=== PATIENT | female | born 1955 | race Two or more races ===

== ENCOUNTER 2018-06-25 17:42 | Inpatient (IN) | payer MEDICAID ==
[~2018-06-25] VITALS: Ht 144.8 cm; Wt 64.9 kg
--- NOTE | 2018-06-25 17:53 | NUR ---
BIB SELF FOR C/O MID ABDOMINAL PAIN THAT STARTED 9AM TODAY, NAUSEA AND VOMITING. TO ER BED 9, HOOKED TO MONITOR, CHANGED TO GOWN, PROVIDED W WARM BLANKET, AWAITING MD MATHIAS.
--- NOTE | 2018-06-25 17:55 | NUR ---
DR DOBBS AT BEDSIDE
--- NOTE | 2018-06-25 17:58 | NUR ---
IV ACCESS OBTAINED ON L AC 20G
[2018-06-25] MEDS ORDERED: IV NS 0.9% 1,000 ML BAG IV ONE (18:00)
[2018-06-25] MEDS ORDERED: HYDROMORPHONE INJ 2 MG/ML DISP.SYRIN IV ONE (18:00)
[2018-06-25] MEDS ORDERED: ONDANSETRON HCL/PF 4 MG/2 ML VIAL IVP ONE (18:00)
[2018-06-25] MEDS ORDERED: ONDANSETRON HCL/PF 4 MG/2 ML VIAL ONE (18:02)
[2018-06-25] MEDS ORDERED: HYDROMORPHONE 1 MG/1 ML DISP.SYRIN ONE ×2 (18:03→19:25)
[2018-06-25 18:05] LABS: BASOPHILS % (AUTO) 0.5 % (0.0-2.0); EOSINOPHILS % (AUTO) 1.1 % (0.0-6.0); HEMATOCRIT 40 % (33-45); HEMOGLOBIN 13.7 g/dL (11.5-14.8); LYMPHOCYTES # (AUTO) 1.3 /CMM (0.8-4.8); LYMPHOCYTES % (AUTO) 14.6 % (20.0-44.0); MEAN CORPUSCULAR HGB CONC 34 g/dl (31.0-36.0); MEAN CORPUSCULAR VOLUME 91 fL (82-100); MONOCYTES # (AUTO) 0.5 /CMM (0.1-1.30); MONOCYTES % (AUTO) 5.8 % (2.0-12.0); NEUTROPHILS # (AUTO) 7.2 /CMM (1.8-8.9); PLATELET COUNT (AUTO) 219 /CMM (150-450); RED BLOOD CELL COUNT(AUTO) 4.41 MIL/uL (4.0-5.2); WHITE BLOOD COUNT (AUTO) 9.2 K/uL (4.3-11.0)
[2018-06-25] MEDS ORDERED: LATA2.5D7 EACHEYE (18:10)
[2018-06-25] MEDS ORDERED: TIMO5SOL11 EACHEYE (18:10)
[2018-06-25] MEDS ORDERED: RISE35TA PO (18:10)
[2018-06-25] MEDS ORDERED: CELE100C98 PO (18:10)
[2018-06-25] MEDS ORDERED: ACET1TAB23 PO (18:10)
[2018-06-25] MEDS ORDERED: FLUO-120 PO (18:10)
[2018-06-25] MEDS ORDERED: FAMO20TA8 PO (18:10)
--- NOTE | 2018-06-25 18:12 | NUR ---
WHEELED OUT VIA [facility] FOR CT SCAN.
[2018-06-25 18:16] LABS: CALCIUM, SERUM 8.9 mg/dL (8.5-10.1); CREATININE 0.7 mg/dL (0.6-1.3); POTASSIUM 2.9 mmol/L (3.5-5.1)
[2018-06-25 18:21] LABS: ALBUMIN 4.1 g/dL (3.4-5.0); BILIRUBIN,DIRECT 0.1 mg/dL (0.0-0.2); BILIRUBIN,TOTAL 0.3 mg/dL (0.2-1.0)
[2018-06-25] MEDS ORDERED: POTASSIUM CL. PREMIX PERIPHER. 100 ML ONE (18:37)
--- NOTE | 2018-06-25 18:40 | NUR ---
1ST BAG OF POTASSIUM CHLORIDE 10MEQ/50ML HUNG AT BEDSIDE, SET TO 50ML/HR.
[2018-06-25] MEDS: POTASSIUM CL. PREMIX PERIPHER. 50 ML IV SCH ×3 (18:45→22:39)
--- NOTE | 2018-06-25 19:10 | NUR ---
PT TOLERATING POTASSIUM CHLORIDE 10MEQ/50ML WELL. HOOKED TO MONITOR, VSS, KEPT SAFE, WARM AND COMFORTABLE.
--- NOTE | 2018-06-25 19:20 | NUR ---
PT COMPLAINED OF LAC (PERIPHERAL IV SITE) PAIN. MADE MD AWARE, VERBAL ORDER OF 1L NS RECEIVED TO RUN AT 100ML/HR TOGETHER WITH POTASSIUM CHLORIDE IV.
--- NOTE | 2018-06-25 19:25 | NUR ---
REPORT GIVEN TO JEAN ASCENCIO FOR IVAN
[2018-06-25] MEDS ORDERED: IV NS 0.9% 1,000 ML IV ONE (19:30)
[2018-06-25] MEDS ORDERED: HYDROMORPHONE 1 MG/1 ML DISP.SYRIN IV ONE (19:30)
--- NOTE | 2018-06-25 19:30 | NUR ---
CALLED DR LEON SURGERY MANAGEMENT TRAINEE PROGRAM STORES. ON THE PHONE WITH DR DOBBS.
--- NOTE | 2018-06-25 19:32 | NUR ---
CALLED [employer] VALUATION CONSULTANT WAS PAGED.
--- NOTE | 2018-06-25 19:33 | NUR ---
CALLED NURSING PULVERIZER FEEDER REQUESTING A MS BED.
--- NOTE | 2018-06-25 19:34 | NUR ---
RECEIVED REPORT FROM JEREMIAS ASCENCIO FOR IVAN
--- NOTE | 2018-06-25 20:40 | NUR ---
GAVE REPORT TO ANA ASCENCIO FOR IVAN
--- NOTE | 2018-06-25 20:45 | NUR ---
PT TRANSFERRED TO MS BED 308 VIA GURNEY WITH EMT
--- NOTE | 2018-06-25 20:50 | NUR ---
RN NOTES RECEIVED PATIENT FROM ER VIA CHRISTOPHER. FAMILY AT BEDSIDE. A/O X4. NO S/S OF SOB OR DISTRESS. BREATHING EVEN AND UNLABORED. HAS IV ACCESS IN LAC, PATENT AND INTACT WITH POTASSIUM AND NS FLUIDS RUNNING, NO SIGNS OF REDNESS OR INFILTRATION. PATIENT STATES PAIN 9/10 IN LOWER ABDOMEN. ORIENTED PATIENT TO UNIT AND ROOM. SKIN INTACT. BED IN LOWER LOCKED POSITION WITH SIDE RAILS X2. CALL LIGHT WITHIN REACH. WILL CONTINUE TO MONITOR.
[2018-06-25 21:00] VITALS: BP 119/71
[2018-06-25] MEDS ORDERED: Potassium Chloride 20 MEQ in IV D5/ 0.9% NACL 1,000 ML IV PRN (23:30)
[2018-06-26] MEDS ORDERED: PIPERACILLIN /TAZOBACTAM 3.375 G in IV D5W 50 ML IV SCH ×2
[2018-06-26] MEDS ORDERED: PIPERACILLIN /TAZOBACTAM 3.375 G VIAL IV ONE ×2 (00:18→05:33)
[2018-06-26] MEDS: PIPERACILLIN /TAZOBACTAM 3.375 G in IV D5W 50 ML IV SCH ×2 (00:21→05:55)
[2018-06-26] MEDS: ONDANSETRON HCL/PF 4 MG/2 ML VIAL IVP PRN ×2 (00:29→12:28)
[2018-06-26] MEDS: HYDROMORPHONE INJ 2 MG/ML DISP.SYRIN IV PRN ×2 (00:30→19:03)
[2018-06-26] MEDS: POTASSIUM CL. PREMIX PERIPHER. 50 ML IV SCH (01:23)
[2018-06-26] MEDS ORDERED: IV PREMIX D5 1/2NS + KCL 1,000 ML IV ONE (01:31)
[2018-06-26] MEDS: Potassium Chloride 20 MEQ in IV D5/0.45 NACL 1,000 ML IV PRN ×2 (02:32→17:52)
--- NOTE | 2018-06-26 06:34 | NUR ---
RN CLOSING NOTES PATIENT RESTING COMFORTABLY IN BED. A/O X4. NO SIGNS OF DISTRESS OR DISCOMFORT. BREATHING EVEN AND UNLABORED. IV ACCESS IN LAC WITH KCL 20 W/D5 1/2NS INFUSING, NO SIGNS OF REDNESS OR INFILTRATION. PATIENT STATES ABD PAIN TOLERABLE AT 4/10. ALL NEEDS MET. BED IN LOW LOCKED POSITION WITH SIDE RAILS X2. CALL LIGHT WITHIN REACH. WILL ENDORSE TO AM SHIFT FOR IVAN.
--- NOTE | 2018-06-26 07:20 | NUR ---
MS RN NOTES PATIENT RECEIVED RESTING INSIDE ROOM. AWAKE, ALERT AND ORIENTED,. VERBALLY RESPONSIVE AND RESPONDS TO VERBAL AND TACTILE STIMULI. BREATHING EVEN AND UNLABORED. NO ACUTE DISTRESS AT THIS TIME. PATIENT CALM AND RELAXED. NPO STATUS AT THIS TIME. PATIENT AWARE AND VERBALIZED UNDERSTANDING. WILL CONTINUE TO MONITOR. BED LOCKED AND IN LOW POSITION. BILATERAL UPPER SIDE RAILS UP AND LOCKED. CALL LIGHT WITHIN EASY REACH
[2018-06-26 07:58] LABS: BASOPHILS % (AUTO) 0.4 % (0.0-2.0); EOSINOPHILS % (AUTO) 0.6 % (0.0-6.0); HEMATOCRIT 33 % (33-45); HEMOGLOBIN 11.3 g/dL (11.5-14.8); LYMPHOCYTES # (AUTO) 1.5 /CMM (0.8-4.8); MEAN CORPUSCULAR HGB CONC 34 g/dl (31.0-36.0); MEAN CORPUSCULAR VOLUME 92 fL (82-100); MONOCYTES # (AUTO) 0.6 /CMM (0.1-1.30); MONOCYTES % (AUTO) 8.1 % (2.0-12.0); NEUTROPHILS # (AUTO) 5.5 /CMM (1.8-8.9); NEUTROPHILS % (AUTO) 71.9 % (43.0-81.0); PLATELET COUNT (AUTO) 177 /CMM (150-450); RED BLOOD CELL COUNT(AUTO) 3.58 MIL/uL (4.0-5.2); WHITE BLOOD COUNT (AUTO) 7.7 K/uL (4.3-11.0)
[2018-06-26 08:00] VITALS: BP 76/45
[2018-06-26 08:19] LABS: ALBUMIN 2.9 g/dL (3.4-5.0); BILIRUBIN,TOTAL 0.6 mg/dL (0.2-1.0); CALCIUM, SERUM 7.4 mg/dL (8.5-10.1); CREATININE 0.5 mg/dL (0.6-1.3); PHOSPHORUS 3.4 mg/dL (2.5-4.9); POTASSIUM 3.5 mmol/L (3.5-5.1); TOTAL PROTEIN, SERUM 6.1 g/dL (6.4-8.2)
[2018-06-26] MEDS ORDERED: TIMOLOL -XE 0.5% 5 ML BOTTLE EACHEYE SCH (09:00)
[2018-06-26] MEDS: PANTOPRAZOLE 40 MG VIAL IV SCH (09:49)
--- NOTE | 2018-06-26 10:57 | NUR ---
MS RN NOTES VERIFIED ORDER FOR TIMOLOL XE 0.5% WITH DR SCHULTZ. GAVE OK TO CHANGE TO TIMOLOL 0.5%. ORDER NOTED AND CARRIED OUT. PHARMACY MADE AWARE. PATIENT MADE AWARE AND VERBALIZED UNDERSTANDING
[2018-06-26 11:30] VITALS: BP 97/44
[2018-06-26] MEDS ORDERED: LORAZEPAM INJ 2 MG/ML VIAL IV PRN (11:30)
[2018-06-26] MEDS: PIPERACILLIN /TAZOBACTAM 3.375 G in IV D5W 100 ML IV SCH ×2 (12:22→21:26)
[2018-06-26] MEDS: TIMOLOL 0.5% SOLN OPHTH 5 ML BOTTLE EACHEYE SCH (12:22)
--- NOTE | 2018-06-26 13:06 | NUR ---
MS RN NOTES SEEN AND EXAMINED BY DR. LEON. GAVE OK TO START CLEAR LIQUID DIET. PATIENT MADE AWARE AND VERBALIZED UNDERSTANDING. FNS MADE AWARE. WILL CONTINUE TO MONITOR
[2018-06-26] MEDS ORDERED: CALC-20 PO (15:55)
[2018-06-26] MEDS ORDERED: TIMO5DRO18 EACHEYE (15:57)
[2018-06-26 16:00] VITALS: BP 89/56
[2018-06-26] MEDS: LATANOPROST EYE DROP 0.005% 2.5 ML BOTTLE EACHEYE SCH (17:53)
--- NOTE | 2018-06-26 18:48 | NUR ---
MS RN NOTES PATIENT RESTING INSIDE ROOM. AWAKE, ALERT AND ORIENTED X 4, VERBALLY RESPONSIVE AND RESPONDS TO VERBAL AND TACTILE STIMULI. BREATHING EVEN AND UNLABORED. NO ACUTE DISTRESS NOTED. PATIENT CALM AND RELAXED. IV INTACT AND PATENT. PATIENT KEPT CLEAN, DRY AND COMFORTABLE. WILL ENDORSE TO INCOMING SHIFT FOR IVAN. BED LOCKED AND IN LOW POSITION. BILATERAL UPPER SIDE RAILS UP AND LOCKED. CALL LIGHT WITHIN EASY REACH
--- NOTE | 2018-06-26 19:30 | NUR ---
MS SUPERVISOR FILES INITIAL NOTES RECEIVED REPORT FROM AM NURSE AND SEEN PT IN BED AWAKE AND ALERT WITH IVF [id number] KCL AT 100ML/HR INFUSING AT THIS TIME ON HER LEFT AC PATENT AND INTACT. NO SIGNS OF ANY DISTRESS NOTED AND SHE STATED THAT SHE FEEL DIZZY AT THIS TIME I TOLD HER THAT BECAUSE OF HER PAIN MEDICATION . PT STATES "AH OK ". KEPT HER ON SITTING POSITION FOR NOW AND KEPT HER WARM AND COMFORTABLE AT ALL TIMES. PLACE CALL LIGHT AT REACH. WILL [id number] MONITORING.
[2018-06-26 20:00] VITALS: BP 102/57
[2018-06-27] MEDS: ONDANSETRON HCL/PF 4 MG/2 ML VIAL IVP PRN ×2 (00:48→22:22)
--- NOTE | 2018-06-27 00:48 | NUR ---
MS SONJA NOTES C/O NAUSEA, ZOFRAN ADMINISTERED ORDERED. KEPT HER ON SEMI FOWLERS POSITION . IVF STILL INFUSING. KEPT HER WARM AND COMFORTABLE AT ALL TIMES. PLACE CALL LIGHT AT REACH.
[2018-06-27 00:49] LABS: APPEARANCE,URINE CLEAR (CLEAR); BILIRUBIN,URINE NEGATIVE (NEGATIVE); BLOOD, URINE TRACE Ery/uL (NEGATIVE); COLOR,URINE YELLOW (YELLOW); KETONES,URINE NEGATIVE (NEGATIVE); LEUKOCYTE ESTERASE ,URINE TRACE (NEGATIVE); NITRITE, URINE NEGATIVE (NEGATIVE); PROTEIN,URINE NEGATIVE (NEGATIVE); UGLUCOSE NEGATIVE (NEGATIVE)
[2018-06-27 01:02] LABS: BACTERIA,URINE None seen /HPF (None Seen); RBC,URINE 0-2 /HPF (0-2); SQUAMOUS EPITHELIAL CELL,UR Few /HPF (None Seen); WBC,URINE 0-2 /HPF (0-3)
[2018-06-27] MEDS: PIPERACILLIN /TAZOBACTAM 3.375 G in IV D5W 100 ML IV SCH ×3 (05:20→21:01)
[2018-06-27] MEDS: Potassium Chloride 20 MEQ in IV D5/0.45 NACL 1,000 ML IV PRN ×2 (05:28→22:22)
[2018-06-27 06:27] LABS: BASOPHILS % (AUTO) 0.7 % (0.0-2.0); EOSINOPHILS % (AUTO) 3.7 % (0.0-6.0); HEMATOCRIT 35 % (33-45); HEMOGLOBIN 11.9 g/dL (11.5-14.8); LYMPHOCYTES # (AUTO) 1.6 /CMM (0.8-4.8); LYMPHOCYTES % (AUTO) 37.3 % (20.0-44.0); MEAN CORPUSCULAR HGB CONC 34 g/dl (31.0-36.0); MEAN CORPUSCULAR VOLUME 93 fL (82-100); MONOCYTES # (AUTO) 0.4 /CMM (0.1-1.30); MONOCYTES % (AUTO) 9.3 % (2.0-12.0); NEUTROPHILS # (AUTO) 2.1 /CMM (1.8-8.9); PLATELET COUNT (AUTO) 175 /CMM (150-450); RED BLOOD CELL COUNT(AUTO) 3.78 MIL/uL (4.0-5.2); WHITE BLOOD COUNT (AUTO) 4.3 K/uL (4.3-11.0)
[2018-06-27 06:40] LABS: CALCIUM, SERUM 7.6 mg/dL (8.5-10.1); CREATININE 0.4 mg/dL (0.6-1.3); MAGNESIUM 2.1 mg/dL (1.8-2.4); PHOSPHORUS 2.7 mg/dL (2.5-4.9)
--- NOTE | 2018-06-27 07:08 | NUR ---
MS SERVICENOW ADMINISTRATOR DEVELOPER CLOSING NOTES PT BACK TO BED AFTER MORNING CARE DONE WITH THE HELPED OF MARY GRACE BARKLEY . PT SLEPT WELL . NO SIGNS OF ANY ACUTE DISTRESS OR ANY DISCOMFORT AT THIS TIME. ALL DUE MEDS GIVEN AND ALL NEEDS MET. KEPT HER WARM AND COMFORTABLE AT ALL TIMES. ZOSYN IVP BAG STILL INFUSING NO ADVERSE REACTION NOTED. PLACE CALL LIGHT AT REACH,ENDORSE TO AM NURSE FOR CONTINUITY OF CARE.
--- NOTE | 2018-06-27 07:36 | NUR ---
MS RN NOTES PATIENT RECEIVED RESTING INSIDE ROOM. AWAKE, ALERT AND ORIENTED, VERBALLY RESPONSIVE AND RESPONDS TO VERBAL AND TACTILE STIMULI. BREATHING EVEN AND UNLABORED. NO ACUTE DISTRESS AT THIS TIME. NO CHANGES IN LOC NOTED. IVF INFUSING, PATIENT TOLERATING WELL. WILL CONTINUE TO MONITOR. BED LOCKED AND IN LOW POSITION. BILATERAL UPPER SIDE RAILS UP AND LOCKED. CALL LIGHT WITHIN EASY REACH
[2018-06-27 08:00] VITALS: BP 95/67
[2018-06-27] MEDS: PANTOPRAZOLE 40 MG VIAL IV SCH (08:34)
[2018-06-27] MEDS: TIMOLOL 0.5% SOLN OPHTH 5 ML BOTTLE EACHEYE SCH (08:34)
--- NOTE | 2018-06-27 15:10 | NUR ---
MS RN NOTES PATIENT SEEN AND EXAMINED BY DR. SCHULTZ. WITH NEW ORDER FOR STAT HIDA SCAN. INFORMED CONSENT OBTAINED BY MD FROM PATIENT AND WITNESSED BY NURSING STAFF. PATIENT LAST PO INTAKE OF FLUIDS AT 1400. NUCLEAR MEDICINE AWARE.
[2018-06-27 16:00] VITALS: BP 99/61
--- NOTE | 2018-06-27 16:00 | NUR ---
MS RN NOTES VERIFIED ORDER FOR HIDA SCAN. PATIENT WITH HX OF CHOLECYSTECTOMY. HIDA SCAN CANCELLED WITH OK FROM MD. PATIENT AWARE AND VERBALIZED UNDERSTANDING. WILL CONTINUE TO MONITOR
[2018-06-27] MEDS: LATANOPROST EYE DROP 0.005% 2.5 ML BOTTLE EACHEYE SCH (18:15)
--- NOTE | 2018-06-27 18:56 | NUR ---
MS RN NOTES PATIENT RESTING INSIDE ROOM. AWAKE, ALERT AND ORIENTED X 4, VERBALLY RESPONSIVE AND RESPONDS TO VERBAL AND TACTILE STIMULI. BREATHING EVEN AND UNLABORED. NO ACUTE DISTRESS AT THIS TIME. PATIENT KEPT CLEAN, DRY AND COMFORTABLE. WILL ENDORSE TO INCOMING SHIFT FOR IVAN. BED LOCKED AND IN LOW POSITION. BILATERAL UPPER SIDE RAILS UP AND LOCKED. CALL LIGHT WITHIN EASY REACH
[2018-06-27 19:56] VITALS: BP 104/66
[2018-06-27] MEDS: HYDROMORPHONE INJ 2 MG/ML DISP.SYRIN IV PRN (21:08)
[2018-06-28] MEDS: PIPERACILLIN /TAZOBACTAM 3.375 G in IV D5W 100 ML IV SCH ×3 (04:25→20:49)
--- NOTE | 2018-06-28 06:50 | NUR ---
MS RN NOTES AWAKE & RESPONSIVE. NOT IN ANY DISTRESS. NO SOB NOTED. DENIES ANY PAIN OR DISCOMFORT AT THIS TIME. WITH IVF INFUSING WELL. MONITORED ACCORDINGLY. CALL LIGHT WITHIN REACH. BED IN LOWEST POSITION. SR UP X 2 FOR SAFETY. WILL ENDORSE TO NEXT SHIFT.
--- NOTE | 2018-06-28 07:34 | NUR ---
MS RN OPENING NOTES RECEIVED PATIENT AWAKE IN BED IN NO ACUTE SIGNS OF DISTRESS. A/O X 4. ABLE TO MAKE NEEDS KNOWN, DENIES PAIN OR DISCOMFORTS AT THIS TIME. ON ROOM AIR, RESPIRATION EVEN AND UNLABORED. IV ACCESS ON LAC INTACT AND PATENT, IVF OF D5 1/2 NS + KCL 20MEQ INFUSING ORDERED, NO S/S OF INFILTRATIONS NOTED. ALL SAFETY MEASURES IN PLACE. BED IN LOW LOCKED POSITION WITH SR UP X2. CALL LIGHT WITHIN REACH. WILL CONTINUE TO MONITOR PT.
[2018-06-28] MEDS: PANTOPRAZOLE 40 MG VIAL IV SCH (07:54)
[2018-06-28 08:00] VITALS: BP 102/66
[2018-06-28 08:13] LABS: BASOPHILS % (AUTO) 0.7 % (0.0-2.0); EOSINOPHILS % (AUTO) 3.9 % (0.0-6.0); HEMATOCRIT 36 % (33-45); HEMOGLOBIN 12.2 g/dL (11.5-14.8); LYMPHOCYTES # (AUTO) 1.3 /CMM (0.8-4.8); LYMPHOCYTES % (AUTO) 30.9 % (20.0-44.0); MEAN CORPUSCULAR HGB CONC 34 g/dl (31.0-36.0); MEAN CORPUSCULAR VOLUME 92 fL (82-100); MONOCYTES # (AUTO) 0.4 /CMM (0.1-1.30); MONOCYTES % (AUTO) 8.4 % (2.0-12.0); NEUTROPHILS # (AUTO) 2.4 /CMM (1.8-8.9); NEUTROPHILS % (AUTO) 56.1 % (43.0-81.0); PLATELET COUNT (AUTO) 180 /CMM (150-450); WHITE BLOOD COUNT (AUTO) 4.3 K/uL (4.3-11.0)
[2018-06-28 08:23] LABS: CALCIUM, SERUM 8.4 mg/dL (8.5-10.1); CREATININE 0.6 mg/dL (0.6-1.3); MAGNESIUM 2.2 mg/dL (1.8-2.4); PHOSPHORUS 3.4 mg/dL (2.5-4.9); POTASSIUM 3.7 mmol/L (3.5-5.1)
[2018-06-28] MEDS: TIMOLOL 0.5% SOLN OPHTH 5 ML BOTTLE EACHEYE SCH (09:10)
[2018-06-28] MEDS: HYDROMORPHONE INJ 2 MG/ML DISP.SYRIN IV PRN (10:08)
--- NOTE | 2018-06-28 10:12 | NUR ---
RN NOTES/ PAIN MANAGEMENT PATIENT COMPLAINED OF LEFT LOWER QUADRANT PAIN WITH SCALE OF 6/10. PRN DILAUDID 1MG/0.5ML IVP ADMINISTERED AT 1008. WILL CONTINUE TO MONITOR AND REASSESS PT.
[2018-06-28] MEDS: Potassium Chloride 20 MEQ in IV D5/0.45 NACL 1,000 ML IV PRN ×2 (10:35→22:14)
--- NOTE | 2018-06-28 13:44 | NUR ---
MS RN ASSUMPTION OF CARE ASSUMED CARE OF PT FROM SILVA GALLARDO. RECEIVED PT IN BED, ALERT AND ORIENTED, X4. DENIES CHEST PAIN, SOB, N/V. BREATHING IS EVEN AND UNLABORED ON ROOM AIR. LEFT AC #20G IV IS INFUSING ORDERED WITHOUT REDNESS OR SWELLING. ALL NEEDS ATTENDED TO. BED IS LOCKED AND IN LOWEST POSITION, SIDE RAILS UP X2, BED ALARM ON, CALL LIGHT AND POSSESSIONS WITHIN REACH.
[2018-06-28] MEDS: ONDANSETRON HCL/PF 4 MG/2 ML VIAL IVP PRN (15:08)
[2018-06-28] MEDS: HYDROCODONE/APAP 5/325MG 1 EACH TABLET PO PRN (15:08)
[2018-06-28 16:00] VITALS: BP 98/58
[2018-06-28] MEDS: LATANOPROST EYE DROP 0.005% 2.5 ML BOTTLE EACHEYE SCH (17:10)
--- NOTE | 2018-06-28 18:04 | NUR ---
MS RN CLOSING NOTE PT IN BED, ALERT AND ORIENTED, X4. DENIES CHEST PAIN, SOB, N/V. BREATHING IS EVEN AND UNLABORED ON ROOM AIR. LEFT AC #20G IV IS INFUSING ORDERED WITHOUT REDNESS OR SWELLING. ADLS PROVIDED AND PT ASSISTED TO TURN AND REPOSITION Q2H. PT NOT TOLERATED CLEAR LIQUID DIET WITH SOME NAUSEA AND ABD PAIN BUT NO EPISODES OF EMESIS. ALL NEEDS ATTENDED TO. BED IS LOCKED AND IN LOWEST POSITION, SIDE RAILS UP X2, BED ALARM ON, CALL LIGHT AND POSSESSIONS WITHIN REACH. WILL ENDORSE TO BUTTER GRADER NURSE FOR CONTINUITY OF CARE.
--- NOTE | 2018-06-28 19:15 | NUR ---
RN OPEN NOTES RECEIVED PATIENT AWAKE IN BED WITH FAMILY AT BEDSIDE. A/O X4. NO SIGNS OF DISTRESS OR DISCOMFORT. BREATHING EVEN AND UNLABORED. STATES PAIN TOLERABLE AT THIS TIME. IV ACCESS IN LAC WITH NS KCL 20MEQ W/D5 1/2 NS INFUSING, PATENT AND INTACT, NO SIGNS OF REDNESS OR INFILTRATION. BED IN LOW LOCKED POSITION WITH SIDE RAILS X2. CALL LIGHT WITHIN REACH. WILL CONTINUE TO MONITOR.
[2018-06-28 20:00] VITALS: BP 97/57
[2018-06-28] MEDS ORDERED: GUAIFENESIN/D-METHORPHAN HB 5 ML UDC PO PRN (22:00)
[2018-06-28] MEDS ORDERED: HYDROMORPHONE INJ 2 MG/ML DISP.SYRIN IV PRN (22:30)
[2018-06-28] MEDS ORDERED: HYDROCODONE/APAP 10/325MG 1 EA TABLET PO PRN (22:30)
[2018-06-29] MEDS: ONDANSETRON HCL/PF 4 MG/2 ML VIAL IVP PRN ×2 (01:12→19:04)
[2018-06-29 06:40] LABS: BASOPHILS % (AUTO) 0.6 % (0.0-2.0); EOSINOPHILS % (AUTO) 3.7 % (0.0-6.0); HEMATOCRIT 36 % (33-45); HEMOGLOBIN 12.4 g/dL (11.5-14.8); LYMPHOCYTES # (AUTO) 1.2 /CMM (0.8-4.8); LYMPHOCYTES % (AUTO) 29.8 % (20.0-44.0); MEAN CORPUSCULAR HGB CONC 34 g/dl (31.0-36.0); MEAN CORPUSCULAR VOLUME 91 fL (82-100); MONOCYTES # (AUTO) 0.3 /CMM (0.1-1.30); NEUTROPHILS # (AUTO) 2.4 /CMM (1.8-8.9); NEUTROPHILS % (AUTO) 57.9 % (43.0-81.0); PLATELET COUNT (AUTO) 190 /CMM (150-450); RED BLOOD CELL COUNT(AUTO) 3.96 MIL/uL (4.0-5.2); WHITE BLOOD COUNT (AUTO) 4.1 K/uL (4.3-11.0)
--- NOTE | 2018-06-29 06:50 | NUR ---
RN CLOSING NOTES PATIENT RESTING IN BED, EASILY AROUSABLE. A/O X4. NO SIGNS OF DISTRESS OR DISCOMFORT. BREATHING EVEN AND UNLABORED. DENIES PAIN AT THIS TIME. IV ACCESS IN LAC WITH NS KCL 20MEQ W/D5 1/2 NS INFUSING, PATENT AND INTACT, NO SIGNS OF REDNESS OR INFILTRATION. ALL NEEDS MET. NO SIGNIFICANT CHANGES THROUGH THE NIGHT. BED IN LOW LOCKED POSITION WITH SIDE RAILS X2. CALL LIGHT WITHIN REACH. WILL ENDORSE TO AM SHIFT FOR IVAN.
[2018-06-29 07:08] LABS: CALCIUM, SERUM 8.4 mg/dL (8.5-10.1); CREATININE 0.5 mg/dL (0.6-1.3); MAGNESIUM 2.1 mg/dL (1.8-2.4); PHOSPHORUS 3.4 mg/dL (2.5-4.9); POTASSIUM 3.9 mmol/L (3.5-5.1)
--- NOTE | 2018-06-29 07:33 | NUR ---
MS RN OPENING NOTE RECEIVED PT IN BED, ALERT AND ORIENTED, X4. DENIES CHEST PAIN, SOB, N/V. BREATHING IS EVEN AND UNLABORED ON ROOM AIR. LEFT AC #20G IV IS INFUSING ORDERED WITHOUT REDNESS OR SWELLING. ALL NEEDS ATTENDED TO. BED IS LOCKED AND IN LOWEST POSITION, SIDE RAILS UP X2, BED ALARM ON, CALL LIGHT AND POSSESSIONS WITHIN REACH.
[2018-06-29 08:00] VITALS: BP 90/58
[2018-06-29] MEDS: PANTOPRAZOLE 40 MG VIAL IV SCH (08:25)
[2018-06-29] MEDS: TIMOLOL 0.5% SOLN OPHTH 5 ML BOTTLE EACHEYE SCH (08:26)
[2018-06-29] MEDS: HYDROCODONE/APAP 5/325MG 1 EACH TABLET PO PRN ×2 (08:35→17:07)
--- NOTE | 2018-06-29 08:35 | NUR ---
MS RN NOTE ADMINISTERED NORCO [phone] PO ORDERED FOR ABD PAIN RATED 6/10. BP: 102/60, HR: 78, SP02 95% ON ROOM AIR.
[2018-06-29] MEDS ORDERED: MAG HYDROX/AL HYDROX/SIMETH 30 ML UDC PO PRN (13:00)
--- NOTE | 2018-06-29 14:29 | NUR ---
MS RN NOTE PER PT, HER SISTER WILL BE ABLE TO PICK HER UP TONIGHT AT APPROXIMATELY 7:30-8:00 AFTER SHE GETS OFF WORK.
[2018-06-29 16:00] VITALS: BP 133/65
[2018-06-29] MEDS: LATANOPROST EYE DROP 0.005% 2.5 ML BOTTLE EACHEYE SCH (17:06)
[2018-06-29] MEDS ORDERED: SUCRALFATE 1 G TABLET PO SCH (18:30)
--- NOTE | 2018-06-29 18:30 | NUR ---
MS RN NOTE DISCHARGE PAPERWORK AND EDUCATION PROVIDED PER PROTOCOL AND IN PILOT STATION LANGUAGE OF FRISIAN. DISCUSSED WITH PT HOSPITALIST RECOMMENDATIONS INCLUDING TO FOLLOW UP WITH PRIMARY CARE PROVIDER WITHIN 1 WEEK AND GI WITHIN 1-2 WEEKS FOR POSSIBLE EGD/COLONOSCOPY, TO CONTINUE HOME MEDICATIONS, AND PROVIDED PRESCRIPTION FOR PROTONIX 40MG BID AND ZOFRAN 4MG PRN. DISCUSSED PROPER AND SAFE USE OF MEDICATIONS AND PROVIDED READING MATERIAL IN FRISIAN. INFORMED PT TO CALL 911 OR RETURN TO THE NEAREST ER FOR CHEST PAIN, SOB, PALPITATIONS WORSENING SYMPTOMS, N/V, DIARRHEA, UNILATERAL CALF SWELLING, BLOOD IN VOMIT OR STOOL,FEVER THAT DOES NOT GO DOWN WITH TYLENOL ADMINISTRATION, OR ABDOMINAL PAIN OR DISTENTION. PT VERBALIZED UNDERSTANDING AND AGREEMENT.
--- NOTE | 2018-06-29 18:44 | NUR ---
MS RN CLOSING NOTE PT IN BED, ALERT AND ORIENTED, X4. DENIES CHEST PAIN, SOB, N/V. BREATHING IS EVEN AND UNLABORED ON ROOM AIR. LEFT AC #20G IV IS INFUSING ORDERED WITHOUT REDNESS OR SWELLING. ADLS PROVIDED AND PT ASSISTED TO TURN AND REPOSITION Q2H. PT IS FOR D/C TONIGHT AT APPROXIMATELY [phone] WHEN HER SISTER WILL BE ABLE TO PICK HER UP. DISCHARGE PAPERWORK AND EDUCATION PROVIDED PER PROTOCOL AND IN MACEDONIAN LANGUAGE. PT REQUIRE PERIPHERAL IV TO BE REMOVED PRIOR TO D/C. ALL NEEDS ATTENDED TO. BED IS LOCKED AND IN LOWEST POSITION, SIDE RAILS UP X2, BED ALARM ON, CALL LIGHT AND POSSESSIONS WITHIN REACH. WILL ENDORSE TO DRAGLINE OPERATOR HELPER NURSE FOR CONTINUITY OF CARE.
--- NOTE | 2018-06-29 19:13 | NUR ---
MS RN NOTE CONTACTED MCKENZIE OJEDA DNP REGARDING PT C/O OF NAUSEA AND "SOUR TASTE" IN MOUTH AND IF STILL OKAY FOR D/C, AWAITING RESPONSE.
--- NOTE | 2018-06-29 19:30 | NUR ---
RN NOTES RECEIVED PATIENT AWAKE IN BED, NO SIGNS OF ACUTE DISTRESS NOTED, COMPLAINT OF SLIGHT NAUSEA, EMESIS BAG PROVIDED, PATIENT STATES THAT HER SISTER AND HER DAUGHTER WILL PICK HER UP TONIGHT AT 2000, ALL SAFETY MEASURES IN PLACED, BED IN LOW LOCKED POSITION, KEPT COMFORTABLE.
[2018-06-29 20:00] VITALS: BP 103/71
--- NOTE | 2018-06-29 20:50 | NUR ---
RN NOTES CONTACTED AND SPOKE TO PESTICIDE USE MEDICAL COORDINATOR BOBBIN HAULER TAL, PATIENT STATES THAT SHE STILL FEEL NAUSEOUS AND WANTS TO STAY OVERNIGHT, PATIENT DENIES PATIENT, NOTED WITH WHITISH SECRETIONS IN SMALL AMOUNT IN THE EMESIS BACK, SATING 97% ON ROOM AIR, NO SIGNS OF ACUTE RESPIRATORY OR CARDIAC DISTRESS. BOBBIN HAULER TAL SAID THAT PATIENT IS OK TO GO HOME. INFORMED PATIENT AND FAMILY MEMBERS. VERBALIZED UNDERSTANDING. IV ACCESS REMOVED.
--- NOTE | 2018-06-29 21:30 | NUR ---
RN NOTES PATIENTS OUT OF THE UNIT AT 2130, ACCOMPANIED BY DAUGHTER AND PATIENT'S SISTER, ALL NEEDS ATTENDED AND MET. DISCHARGE PLAN AND INSTRUCTIONS GIVEN AND DISCUSSED TO PATIENT AND FAMILY MEMBERS, VERBALIZED UNDERSTANDING, PATIENT IS MEDICALLY STABLE, BP 103/71, [id number],[id number],TEMP97.8 SATING 97% ON ROOM AIR. ASSISTED BY INGOT PASSER VIA WHEELCHAIR TO THE PARKING AREA.
== END 2018-06-29 21:30 | disposition home or self-care (01) | DRG 249 ==
LOC: ER 17:43 → MED 20:31
PROVIDERS: ADMIT Internal Medicine; ATTEND Hospitalist
DX: A08.4 Viral intestinal infection, unspecified (principal); E87.0 Hyperosmolality and hypernatremia; E87.6 Hypokalemia; F32.9 Major depressive disorder, single episode, unspecified; Z85.43 Personal history of malignant neoplasm of ovary; Z90.49 Acquired absence of other specified parts of digestive tract; H40.9 Unspecified glaucoma; M19.90 Unspecified osteoarthritis, unspecified site; E66.9 Obesity, unspecified; K20.9 Esophagitis, unspecified; Z68.30 Body mass index [BMI] 30.0-30.9, adult; Z90.710 Acquired absence of both cervix and uterus; Z87.11 Personal history of peptic ulcer disease; Z86.010 Personal history of colon polyps
CPT/HCPCS: 36415; 73130-TC; 76700-TC; 80048-TC; 80053-TC; 80076-TC; 81000-TC; 83690-TC; 83735-TC; 84100-TC; 84484-TC; 85025-TC; 87081-TC; 87086-TC; C9113; G0378; J1170; J2405; J2543; J3480; J3490; J7030; J7042; J7060